=== PATIENT | female | born 1975 | race African-American/Black ===

== ENCOUNTER 2017-10-02 00:30 | Emergency (ER) | payer OTHER ==
[2017-10-02 00:52] VITALS: RESP 18; TEMP 97.5
[2017-10-02] MEDS ORDERED: SODIUM CHLORIDE 0.9% 1,000 ML IV ONE (01:40)
--- NOTE | 2017-10-02 01:55 | ED ---
Recheck HPI - General Chief Complaint: Recheck/Abnormal Lab/Rx Stated Complaint: High BP Time Seen by Provider: 10/02/17 01:25 Source: patient, RN notes reviewed Mode of arrival: ambulatory Limitations: no limitations - History of Present Illness Initial Comments: 42-year-old female presented emergency Department chief complaint of diarrhea, hypertension. Patient states she has not been feeling well today states that she did not sleep all night states that she's had diarrhea throughout the day. Denies any vomiting slight nausea denies chest pain or shortness breath. Patient states that she takes hypertension medications but is only on spironolactone. She states that she checked her blood pressure was 150/102. Patient states that she was concerned can't emergency department. Patient states that she's had several episodes of loose watery diarrhea no melena or hematochezia. Denies any dysuria no hematuria. - Related Data Allergies Allergy/AdvReac Type Severity Reaction Status Date / Time Penicillins Allergy Rash/Hives Verified 10/02/17 00:52 Review of Systems ROS Statement: Those systems with pertinent positive or pertinent negative responses have been documented in the HPI. ROS Other: All systems not noted in ROS Statement are negative. Past Medical History Past Medical History: Hypertension History of Any Multi-Drug Resistant Organisms: None Reported Past Surgical History: Orthopedic Surgery Additional Past Surgical History / Comment(s): right ankle Past Psychological History: No Psychological Hx Reported Smoking Status: Former smoker Past Alcohol Use History: None Reported Past Drug Use History: None Reported General Exam Limitations: no limitations General appearance: alert, in no apparent distress Head exam: Present: atraumatic, normocephalic, normal inspection Eye exam: Present: normal appearance, PERRL, EOMI. Absent: scleral icterus, conjunctival injection, periorbital swelling ENT exam: Present: normal exam, normal oropharynx, mucous membranes moist, TM's normal bilaterally Neck exam: Present: normal inspection, full ROM. Absent: tenderness, meningismus, lymphadenopathy Respiratory exam: Present: normal lung sounds bilaterally. Absent: respiratory distress, wheezes, rales, rhonchi, stridor Cardiovascular Exam: Present: regular rate, normal rhythm, normal heart sounds. Absent: systolic murmur, diastolic murmur, rubs, gallop, clicks GI/Abdominal exam: Present: soft, normal bowel sounds. Absent: distended, tenderness, guarding, rebound, rigid Skin exam: Present: warm, dry, intact, normal color. Absent: rash Course Vital Signs 10/02/17 10/02/17 00:47 02:06 Temperature 97.5 F L Pulse Rate 82 66 Respiratory 18 18 Rate Blood Pressure 152/73 136/82 O2 Sat by Pulse 100 99 Oximetry Medical Decision Making - Medical Decision Making 42-year-old female presented from a diarrhea concerns for hypertension. Patient 's vitals are stable. Patient has a viral diarrhea labwork reviewed no acute abnormality. Patient feels improved after IV fluids. - Lab Data Result diagrams: 10/02/17 01:52 10/02/17 01:52 Lab Results 10/02/17 10/02/17 10/02/17 Range/Units 01:52 01:52 01:55 WBC 6.5 (3.8-10.6) k/uL RBC 4.41 (3.80-5.40) m/uL Hgb 12.1 (11.4-16.0) gm/dL Hct 36.8 (34.0-46.0) % MCV 83.5 (80.0-100.0) fL MCH 27.4 (25.0-35.0) pg MCHC 32.9 (31.0-37.0) g/dL RDW 13.5 (11.5-15.5) % Plt Count 251 (150-450) k/uL Neutrophils % 69 % Lymphocytes % 23 % Monocytes % 5 % Eosinophils % 2 % Basophils % 1 % Neutrophils # 4.4 (1.3-7.7) k/uL Lymphocytes # 1.5 (1.0-4.8) k/uL Monocytes # 0.3 (0-1.0) k/uL Eosinophils # 0.1 (0-0.7) k/uL Basophils # 0.0 (0-0.2) k/uL Sodium 141 (137-145) mmol/L Potassium 4.3 (3.5-5.1) mmol/L Chloride 101 (98-107) mmol/L Carbon Dioxide 27 (22-30) mmol/L Anion Gap 13 mmol/L BUN 11 (7-17) mg/dL Creatinine 0.90 (0.52-1.04) mg/dL Est GFR (CKD-EPI)AfAm >90 (>60 ml/min/1.73 sqM) Est GFR (CKD-EPI)NonAf 81 (>60 ml/min/1.73 sqM) Glucose 138 H (74-99) mg/dL Calcium 9.9 (8.4-10.2) mg/dL Total Bilirubin 0.3 (0.2-1.3) mg/dL AST 22 (14-36) U/L ALT 25 (9-52) U/L Alkaline Phosphatase 78 (38-126) U/L Total Protein 7.5 (6.3-8.2) g/dL Albumin 4.3 (3.5-5.0) g/dL Lipase 114 (23-300) U/L Urine Color Light Yellow Urine Appearance Clear (Clear) Urine pH 6.0 (5.0-8.0) Ur Specific [place] 1.004 (1.001-1.035) Urine Protein Negative (Negative) Urine Glucose (UA) Negative (Negative) Urine Ketones Negative (Negative) Urine Blood Negative (Negative) Urine Nitrite Negative (Negative) Urine Bilirubin Negative (Negative) Urine Urobilinogen <2.0 (<2.0) mg/dL Ur Leukocyte Esterase Negative (Negative) Disposition Clinical Impression: Viral diarrhea, Hypertension Disposition: HOME SELF-CARE Condition: Stable Instructions: Acute Diarrhea (ED) Additional Instructions: Please return to the Emergency Department if symptoms worsen or any other concerns. Referrals: Tera Arreguin MD [Primary Care Provider] - 1-2 days Time of Disposition: 02:26
[2017-10-02 02:02] LABS: Basophils % (A) 1 %; Eosinophils # (A) 0.1 k/uL (0-0.7); Eosinophils % (A) 2 %; HCT 36.8 % (34.0-46.0); HGB 12.1 gm/dL (11.4-16.0); Lymphocytes # (A) 1.5 k/uL (1.0-4.8); Lymphocytes % (A) 23 %; MCH 27.4 pg (25.0-35.0); MCHC 32.9 g/dL (31.0-37.0); MCV 83.5 fL (80.0-100.0); Mean Platelet Volume 8.7; Monocytes # (A) 0.3 k/uL (0-1.0); Monocytes % (A) 5 %; Neutrophils # (A) 4.4 k/uL (1.3-7.7); Neutrophils % (A) 69 %; Platelet Count 251 k/uL (150-450); RBC 4.41 m/uL (3.80-5.40); RDW 13.5 % (11.5-15.5); WBC 6.5 k/uL (3.8-10.6)
[2017-10-02 02:06] VITALS: BP 136/82; PULSE 66
[2017-10-02 02:08] LABS: Appearance,Urine Clear (Clear); Bilirubin,Urine Negative (Negative); Blood,Urine Negative (Negative); Color,Urine Light Yellow; Glucose,Urine (UA) Negative (Negative); Ketones,Urine Negative (Negative); Leukocyte Esterase,Urine Negative (Negative); Nitrite,Urine Negative (Negative); Protein,Urine Negative (Negative); Specific Gravity,Urine 1.004 (1.001-1.035); Urobilinogen,Urine <2.0 mg/dL (<2.0)
[2017-10-02 02:11] LABS: ALT 25 U/L (9-52); AST 22 U/L (14-36); Albumin 4.3 g/dL (3.5-5.0); Alkaline Phosphatase 78 U/L (38-126); Anion Gap 13 mmol/L; Blood Urea Nitrogen 11 mg/dL (7-17); Calcium 9.9 mg/dL (8.4-10.2); Carbon Dioxide 27 mmol/L (22-30); Chloride 101 mmol/L (98-107); Glucose 138 mg/dL (74-99); Lipase 114 U/L (23-300); Potassium 4.3 mmol/L (3.5-5.1); Sodium 141 mmol/L (137-145); Total Bilirubin 0.3 mg/dL (0.2-1.3); Total Protein 7.5 g/dL (6.3-8.2)
== END 2017-10-02 02:38 | disposition home or self-care (01) ==
LOC: EC 00:30
DX: I10 Essential (primary) hypertension (principal); A08.4 Viral intestinal infection, unspecified; Z87.891 Personal history of nicotine dependence; Z88.0 Allergy status to penicillin
CPT/HCPCS: 36415; 80053; 81003; 83690; 85025; 99283

== ENCOUNTER → 2018-08-09 | Outpatient (CLI) | payer OTHER ==
[2018-08-09 10:51] LABS: HCT 38.1 % (34.0-46.0); HGB 12.3 gm/dL (11.4-16.0); MCH 28.2 pg (25.0-35.0); MCHC 32.3 g/dL (31.0-37.0); MCV 87.2 fL (80.0-100.0); Mean Platelet Volume 7.9; Platelet Count 209 k/uL (150-450); RBC 4.36 m/uL (3.80-5.40)
[2018-08-10 14:42] LABS: C. trachomatis,PCR Negative (Neg,Equiv); Chlamydia trachomatis Source Urine; N. gonorrhoeae,PCR Negative (Neg,Equiv); Neisseria Source Urine
== END | disposition home or self-care (01) ==
LOC: LABWHC1 09:52
PROVIDERS: ATTEND Obstetrics & Gynecology
DX: O09.521 Supervision of elderly multigravida, first trimester (principal); Z3A.00 Weeks of gestation of pregnancy not specified
CPT/HCPCS: 36415; 82565; 82947; 83021; 85027; 86762; 86780; 86850; 86900; 86901; 87340; 87491; 87591

== ENCOUNTER 2018-10-11 18:14 | Emergency (ER) | payer OTHER ==
[2018-10-11 18:28] VITALS: RESP 18
--- NOTE | 2018-10-11 18:45 | ED ---
General Adult HPI - General Source: patient Mode of arrival: ambulatory Limitations: no limitations <Elisa Rojas - Last Filed: 10/11/18 21:39> <Kortney Grider - Last Filed: 10/13/18 03:25> - General Chief complaint: Abdominal Pain Stated complaint: 17wks preg, abd pain Time Seen by Provider: 10/11/18 18:20 - History of Present Illness Initial comments: 43-year-old female patient presents to the emergency department today for evaluation of suprapubic cramping, urinary frequency, and urinary urgency. Patient states that she is 18 weeks , she is . Patient states symptoms started a couple of days ago. Patient states that today while shopping she did have mucousy discharge from the vagina. Patient did test negative for sexually transmitted infections in July, denies any concern for STIs today. She denies any fever or chills. States that she is nauseated and has been since becoming . She denies any back or flank pain. She denies any constipation or diarrhea. Denies any vaginal bleeding. She is seeing Dr. Horn for OBGYN care. Patient denies any recent rash, shortness breath, chest pain, vomiting, numbness, tingling, dizziness, weakness, headache, visual changes, or any other complaints. (Elisa Rojas) - Related Data Allergies Allergy/AdvReac Type Severity Reaction Status Date / Time Penicillins Allergy Rash/Hives Verified 10/11/18 18:22 Review of Systems ROS Other: All systems not noted in ROS Statement are negative. <Elisa Rojas - Last Filed: 10/11/18 21:39> ROS Other: All systems not noted in ROS Statement are negative. <Kortney Grider - Last Filed: 10/13/18 03:25> ROS Statement: Those systems with pertinent positive or pertinent negative responses have been documented in the HPI. Past Medical History Past Medical History: Hypertension History of Any Multi-Drug Resistant Organisms: None Reported Past Surgical History: Orthopedic Surgery Additional Past Surgical History / Comment(s): right ankle Past Psychological History: No Psychological Hx Reported Smoking Status: Former smoker Past Alcohol Use History: None Reported Past Drug Use History: None Reported <Elisa Rojas - Last Filed: 10/11/18 21:39> General Exam Limitations: no limitations General appearance: alert, in no apparent distress, other (Social well- developed, well-nourished adult female patient in no acute distress. Vital signs upon presentation are temperature 99.5F, pulse 74, respirations 18, blood pressure 156/94, pulse ox 99% on room air.) Eye exam: Present: normal appearance, PERRL, EOMI. Absent: scleral icterus, c onjunctival injection, periorbital swelling ENT exam: Present: normal exam, normal oropharynx, mucous membranes moist Respiratory exam: Present: normal lung sounds bilaterally. Absent: respiratory distress, wheezes, rales, rhonchi, stridor Cardiovascular Exam: Present: regular rate, normal rhythm, normal heart sounds. Absent: systolic murmur, diastolic murmur, rubs, gallop, clicks GI/Abdominal exam: Present: soft, tenderness (mild suprapubic tenderness), normal bowel sounds. Absent: distended, guarding, rebound, rigid Back exam: Present: normal inspection. Absent: CVA tenderness (R), CVA tenderness (L) Neurological exam: Present: alert, oriented X3, CN II-XII intact Psychiatric exam: Present: normal affect, normal mood Skin exam: Present: warm, dry, intact, normal color. Absent: rash <Elisa Rojas - Last Filed: 10/11/18 21:39> Course Vital Signs 10/11/18 10/11/18 18:22 20:55 Temperature 99.5 F 97.8 F Pulse Rate 74 73 Respiratory 18 18 Rate Blood Pressure 156/94 151/90 O2 Sat by Pulse 99 99 Oximetry Medical Decision Making - Radiology Data Radiology results: report reviewed, image reviewed <Elisa Rojas M - Last Filed: 10/11/18 21:39> <Kortney Grider - Last Filed: 10/13/18 03:25> - Medical Decision Making 43-year-old female patient who is 17-18 weeks presents to the emergency department today for evaluation of suprapubic pain with urination, urine odor, and urinary frequency. Physical examination was unremarkable, and abdomen soft and gravid. Urinalysis showed no acute abnormalities. We did perform ultrasound of the fetus which showed a 17 week fetus measuring in the 10th percentile for weight. There is low lying placenta and a shortened cervix. Patient is having no bleeding. She did test negative for all STDs in July denies any concern for sexual transmitted infection. She denies any vaginal bleeding. She'll be discharged this time to follow-up with her COOK HELPER for recheck as soon as possible. Return parameters were discussed in detail. She verbalizes understanding and agrees with this plan. (Elisa Rojas) I was available for consultation in the emergency department. The history and physical exam were done by the midlevel provider. I was consulted for this patient's care. I reviewed the case with the midlevel provider and based on their presentation of the patient, I agree with the assessment, medical decision making and plan of care as documented. Chart was dictated using [employer] MD dictation software. Attempts were made to correct any dictation errors however some typographical errors may persist. (Kortney Grider) - Lab Data Lab Results 10/11/18 Range/Units 18:40 Urine Color Yellow Urine Appearance Clear (Clear) Urine pH 6.5 (5.0-8.0) Ur Specific [place] 1.028 (1.001-1.035) Urine Protein Trace H (Negative) Urine Glucose (UA) Negative (Negative) Urine Ketones Negative (Negative) Urine Blood Negative (Negative) Urine Nitrite Negative (Negative) Urine Bilirubin Negative (Negative) Urine Urobilinogen <2.0 (<2.0) mg/dL Ur Leukocyte Esterase Negative (Negative) - Radiology Data ultrasound was obtained. Report was reviewed in its entirety. Impression by Dr. Gallagher shows single live intrauterine with established gestational age is 17 weeks 5 days. Gestational age by current ultrasound biometry is smaller at [address] in the gestation at the 10th percentile for weight. HC/before meals remains normal arguing against brain spearing physiology. Obstructive follow-up as indicated. Anterior, low lying placenta maybe within 2 cm of the internal cervical os. Transvaginal exam can provide more detailed assessment excluded placenta previa follow-up. Borderline cervical shortening of 3 cm. Again clinical follow-up recommended. (Elisa Rojas) Disposition Is patient prescribed a controlled substance at d/c from ED?: No Time of Disposition: 21:19 <Elisa Rojas - Last Filed: 10/11/18 21:39> <Kortney Grider - Last Filed: 10/13/18 03:25> Clinical Impression: Pelvic pain during Disposition: HOME SELF-CARE Condition: Good Instructions (If sedation given, give patient instructions): Abdominal Pain in (ED) Additional Instructions: Monitor blood pressure. Follow up with your primary care physician and your COOK HELPER for recheck as soon as possible. Return to the emergency department immediately for any new, worsening, or concerning symptoms. Referrals: Yoselyn James MD [Primary Care Provider] - 1-2 days
[2018-10-11 18:59] LABS: Appearance,Urine Clear (Clear); Bilirubin,Urine Negative (Negative); Blood,Urine Negative (Negative); Color,Urine Yellow; Glucose,Urine (UA) Negative (Negative); Ketones,Urine Negative (Negative); Leukocyte Esterase,Urine Negative (Negative); Nitrite,Urine Negative (Negative); PH, Urine 6.5 (5.0-8.0); Protein,Urine Trace (Negative); Specific Gravity,Urine 1.028 (1.001-1.035); Urobilinogen,Urine <2.0 mg/dL (<2.0)
[2018-10-11 20:56] VITALS: BP 151/90; PULSE 73; TEMP 97.8
--- NOTE | 2018-10-11 20:58 | US ---
EXAMINATION TYPE: US OB >= 14 wk fetus DATE OF EXAM: 10/11/2018 COMPARISON: None CLINICAL HISTORY: 43-year-old female with Pain TECHNIQUE: Transabdominal (TA) FINDINGS: Cargo Service Supervisor notes: Patient of large body habitus with extensive scarring along the midline. Patient's bladder is also empty. Technically difficult study. GESTATIONAL AGE / DATING Physician Established: (17 weeks/5 days) EDC: 03/16/19 Dates by LMP: LMP unknown Dates by First Scan: No previous available Dates by Current Scan: ( 17 weeks/0 days) EDC: 03/21/19 SURVEY IUP: Single PLACENTA: Anterior PREVIA: Low Lying, may be within 2 cm of the internal cervical os. AIDEN: 9.2 cm , lower end of normal. CERVICAL LENGTH (transabdominal: norm > 3.0cm): 3.0 cm, lower end of normal. BIOMETRY PRESENTATION: Breech BPD: 3.7 cm 17 weeks / 2 days HC: 13.5 cm 17 weeks / 0 days AC: 11.2 cm 17 weeks / 0 days FL: 2.3 cm 16 weeks / 6 days ESTIMATED WEIGHT IN GRAMS: 175 grams ESTIMATED WEIGHT IN LBS/OZ: 0 lbs. 6 oz. WEIGHT PERCENTAGE BASED ON ESTABLISHED DATES: 9.8% HC/AC: 1.2 FL/AC: 20.5 HEART RATE: 149 bpm RHYTHM: normal MATERNAL WALL MEASUREMENT: 3.9 cm from skin to anterior uterine wall (if exam limited due to body hab itus). IMPRESSION: 1. Single live intrauterine with established gestational age of 17 weeks 5 days. Gestationa l age by current ultrasound biometry is smaller at 17 weeks 0 days placing the gestation at the 10th percentile for weight. HC/AC remains normal arguing against brain sparing physiology. Obstetric follo w-up as indicated. 2. Anterior, low lying placenta may be within 2 cm of the internal cervical os. A transvaginal exam c an provide more detailed assessment and exclude placenta previa at follow-up. 3. Borderline cervical shortening at 3.0 cm. Again, clinical follow-up recommended.
== END 2018-10-11 21:32 | disposition home or self-care (01) ==
LOC: EC 18:14
DX: O99.89 Other specified diseases and conditions complicating pregnancy, childbirth and the puerperium (principal); R10.2 Pelvic and perineal pain; O44.42 Low lying placenta NOS or without hemorrhage, second trimester; O26.872 Cervical shortening, second trimester; R35.0 Frequency of micturition; R39.15 Urgency of urination; R11.0 Nausea; Z87.891 Personal history of nicotine dependence; Z88.0 Allergy status to penicillin; Z3A.17 17 weeks gestation of pregnancy
CPT/HCPCS: 76805; 81003; 87086; 99284

== ENCOUNTER 2018-11-12 10:23 | Outpatient (CLI) | payer OTHER ==
[2018-11-12 11:13] LABS: Appearance,Urine Clear (Clear); Bilirubin,Urine Negative (Negative); Blood,Urine Negative (Negative); Color,Urine Colorless; Glucose,Urine (UA) Negative (Negative); Ketones,Urine Negative (Negative); Leukocyte Esterase,Urine Negative (Negative); Nitrite,Urine Negative (Negative); Protein,Urine Negative (Negative); Specific Gravity,Urine 1.006 (1.001-1.035); Urobilinogen,Urine <2.0 mg/dL (<2.0)
[2018-11-12 11:26] VITALS: BP 161/84; PULSE 105; RESP 18; TEMP 97.7
[2018-11-12 11:41] LABS: Basophils % (A) 0 %; Eosinophils # (A) 0.1 k/uL (0-0.7); Eosinophils % (A) 1 %; HCT 39.6 % (34.0-46.0); HGB 12.6 gm/dL (11.4-16.0); Lymphocytes # (A) 1.3 k/uL (1.0-4.8); Lymphocytes % (A) 21 %; MCH 27.9 pg (25.0-35.0); MCHC 31.8 g/dL (31.0-37.0); Mean Platelet Volume 10.2; Monocytes # (A) 0.4 k/uL (0-1.0); Monocytes % (A) 6 %; Neutrophils # (A) 4.3 k/uL (1.3-7.7); Neutrophils % (A) 70 %; Platelet Count 170 k/uL (150-450); RBC 4.51 m/uL (3.80-5.40); RDW 14.5 % (11.5-15.5); WBC 6.2 k/uL (3.8-10.6)
[2018-11-12 11:53] LABS: ALT 31 U/L (9-52); AST 35 U/L (14-36); Blood Urea Nitrogen 11 mg/dL (7-17); LDH 507 U/L (313-618); Uric Acid 6.8 mg/dL (3.7-7.4)
--- NOTE | 2018-11-12 17:10 | P.MSEPDOC ---
Presenting Problems - Arrival Data Date of Arrival on Unit: 11/12/18 Time of Arrival on Unit: 10:45 Mode of Transport: Ambulatory - Complaint OB-Reason for Admission/Chief Complaint: PIH Medical History - Information : 6 Para: 3 Abortions: Spontaneous or Elective: 1 Number of Living Children: 3 - Gestational Age Gestational Age by LOKESH (wks/days): 22 Weeks and 2 Days - History Complications: Prior Review of Systems - Review of Systems Constitutional: No problems Breast: No problems ENT: No problems Cardiovascular: No problems Respiratory: No problems Gastrointestinal: No problems Genitourinary: No problems Musculoskeletal: No problems Neurological: No problems Skin: No problems Vital Signs - Temperature Temperature: 97.7 F Temperature Source: Temporal Artery Scan - Pulse Right Sitting Brachial Pulse Rate: 105 Pulse Assessment Method: Automatic Cuff - Respirations Respiratory Rate: 18 Oxygen Delivery Method: Room Air O2 Sat by Pulse Oximetry: 100 - Blood Pressure Right Arm Sitting Blood Pressure: 161/84 Blood Pressure Mean: 109 Blood Pressure Source: Automatic Cuff Medical Screen Scoring (Pre) - Cervical Exam Dilation: Exam Deferred Effacement: Exam Deferred - Uterine Contractions Frequency: N/A Duration: N/A Intensity: N/A - Maternal Vital Signs Maternal Blood Pressure: Systolic >139 = 2 Signs of Preeclampsia: N/A Maternal Respirations: N/A - Pain Assessment Pain Scale Used: Numeric (1 - 10) Pain Intensity: 0 Pain Management Goal: 3 - Maternal Trauma Maternal Trauma: N/A - Total Score Total Score (Pre): 2 - Level of Risk Level of Risk: Low (0-5) Physician Notification (Pre) - Notification Comment Comment: lab results pending Physician Notification (Post) - Physician Notified Physician Notified Date: 11/12/18 Physician Notified Time: 12:50 Physician/Practitioner Notified:: Dr. Horn Spoke With: Dr. Horn New Order Received: Yes - Notification Comment Comment: Pt may discharge home. Prescription for Procardia 60mg once per day given. Disposition - Disposition OB Disposition: Discharge to home Discharge Date: 11/12/18 Discharge Time: 13:25 I agree with the RN Medical Screening Exam: Yes Risk & Benefit of care provided described in d/c instruction: Yes Diagnosis: GESTATIONAL HTN W/O SIGNIFICANT PROTEINURIA, UNSP TRIMESTER
== END 2018-11-12 13:25 | disposition home or self-care (01) ==
LOC: FBPOP 10:23
PROVIDERS: ATTEND Obstetrics & Gynecology
DX: O13.9 Gestational [pregnancy-induced] hypertension without significant proteinuria, unspecified trimester (principal); Z3A.22 22 weeks gestation of pregnancy
CPT/HCPCS: 82570; 84156; 82565; 83615; 84450; 84460; 84520; 84550; 85025; 81003; G0463; 99215